=== PATIENT | male | born 1955 | race Caucasian/White ===

== ENCOUNTER → 2016-06-08 | Outpatient (CLI) | payer OTHER ==
[~2016-06-08] MED LIST: ADVIN25/60 INH; ALFU10TA30 PO; CITA20TA9 PO; CMD5 PO; ENOX100I; FLM4 PO; FLNIN/ NAE; HYDR-5688 PO; IPRA1AER2 INH; MULT-506 PO; MULTTAB58 PO; SIMV20TA2 PO; TRAM-10 PO; VITAMIN D PO; WARF2.5T8 PO; WARF5TAB7 PO
--- NOTE | 2016-06-08 14:30 | DIAGNOSTIC IMAGING REPORT ---
MRI right knee RIGHT LOWER EXT JOINT WITHOUT CLINICAL HISTORY: R KNEE PAIN Right pain TECHNIQUE: Multiaxial MRI acquisition COMPARISON STUDY: None FINDINGS: Signal characteristics of all major osseous structures are unremarkable. There is no significant bone marrow replacing process. The articular services appear intact at all major joint compartments levels. There is no significant joint effusion. There is no evidence for popliteal cyst. The menisci shows the lateral meniscus to be unremarkable. Medial meniscus shows a small linear tear inferior surface posterior horn of the meniscus. Anterior horn is unremarkable. There is no evidence for meniscal truncation. Cruciate ligaments are intact. Lateral collateral ligament is unremarkable. There is a very small partial tear of the medial collateral ligament. Infrapatellar tendon is intact. IMPRESSION: 1. Linear rather superficial tear inferior surface posterior horn medial meniscus. 2. Small partial tear medial collateral ligament. 3. Study is otherwise negative. Electronically signed by: Brannon Barillas M.D. 06/08/2016 2:28 PM Dictated Date/Time: 06/08/2016 2:24 PM
== END | disposition home or self-care (01) ==
PROVIDERS: ATTEND Orthopaedic Surgery
DX: M25.561 Pain in right knee (principal); S83.241A Other tear of medial meniscus, current injury, right knee, initial encounter; S83.411A Sprain of medial collateral ligament of right knee, initial encounter; X58.XXXA Exposure to other specified factors, initial encounter

== ENCOUNTER → 2016-07-12 | Day surgery (SDC) | payer OTHER ==
[2016-07-01 09:05] VITALS: Ht 175.3 cm; Wt 97.9 kg
--- NOTE | 2016-07-01 09:37 | PAT Medication Instructions ---
Service Date Jul 01, 2016. Current Home Medication List Citalopram Hydrobromide (Celexa), 20 MG PO QAM Fluticasone Propionate (Fluticasone Propionate), 2 SPRAYS SUSANNE HS Ipratropium-Albuterol (Combivent Respimat), 1 PUFFS INH QID PRN for PRN Multivitamin (Multivitamin), 1 TAB PO QAM Simvastatin (Zocor), 20 MG PO QAM Tamsulosin HCl (Tamsulosin HCl), 0.4-0.8 MG PO QAM Tramadol (Ultram), 1 TAB PO BID Warfarin Sod (Jantoven), 2.5 MG PO monday am Warfarin Sod (Jantoven), 5 MG PO 6XWEEK [Vitamin D], 1 TAB PO QAM Medication Instructions For Your Scheduled Surgery - Per Coumadin clinic instructions: Warfarin Sod (Martoven), 2.5 MG PO monday am Warfarin Sod (Jantoven), 5 MG PO 6XWEEK *Per pt, to bridge with Lovenox* - Hold the following medications the morning of surgery: Multivitamin (Multivitamin), 1 TAB PO QAM [Vitamin D], 1 TAB PO QAM - Take the following medications the morning of surgery with a sip of water OTHERWISE NOTHING TO EAT OR DRINK AFTER MIDNIGHT: Ipratropium-Albuterol (Combivent Respimat), 1 PUFFS INH QID PRN for PRN Tramadol (Ultram), 1 TAB PO BID (may take if needed up to 4 hours prior to surgery) Simvastatin (Zocor), 20 MG PO QAM Tamsulosin HCl (Tamsulosin HCl), 0.4-0.8 MG PO QAM - Take the following medications as scheduled the night before surgery: Fluticasone Propionate (Fluticasone Propionate), 2 SPRAYS SUSANNE HS Ipratropium-Albuterol (Combivent Respimat), 1 PUFFS INH QID PRN for PRN Tramadol (Ultram), 1 TAB PO BID If you have any questions please call us at [phone] or [phone] or [phone]
[~2016-07-12] VITALS: Ht 175.3 cm; Wt 97.9 kg
[~2016-07-12] MED LIST changes: -ADVIN25/60 INH; -ALFU10TA30 PO; +ATROPINE SULFATE 0.1 MG/ML 5ML SYR IV PRN; +BUPIVACAINE 0.5 % 5 MG/1 ML MPF 30ML VIAL ONE; +CEFAZOLIN 2000 MG/60 ML D5W IV SCH; -CMD5 PO; +DEXAMETHASONE SOD INJ 4 MG/ML VIAL ONE; +ENOXAPARIN 30 MG/0.3 ML SYR SQ ONE; +EpHEDrine SULFATE INJ 50 MG/ML AMP IV PRN; +EpINEphrine INJ 1MG/ML AMP 1 MG/ML AMP ONE; +FENTANYL CITRATE INJ 50 MCG/1 ML 2 ML VIAL IV PRN; +FENTANYL CITRATE INJ 50 MCG/1 ML 2 ML VIAL ONE; +KETOROLAC TROMETHAMINE 30 MG/ML VIAL ONE; +LACTATED RINGER'S 1000ML 1,000 ML IV SCH; +LIDOCAINE HCL 1% 20 ML VIAL ONE; +LIDOCAINE HCL 2% 2 ML VIAL (20MG/ML) ONE; +MIDAZOLAM HCL 1 MG/ML 2ML VIAL ONE; -MULTTAB58 PO; +ONDANSETRON INJ 2 MG/ML 2 ML VIAL IV PRN; +ONDANSETRON INJ 2 MG/ML 2 ML VIAL ONE; +OXYCODONE/ACETAMINOPHEN 5-325 TAB PO PRN; +PROPOFOL IV EMULSION 10 MG/ML 20 ML VIAL IV ONE; +ROPIVACAINE 0.5% 5 MG/ML 30 ML VIAL ONE; +SODIUM CHLORIDE 0.9% 1000ML 1,000 ML IV SCH
--- NOTE | 2016-07-12 09:57 | [facility] Post Operative Brief Note ---
Immediate Operative Summary Operative Date Jul 12, 2016. Pre-Operative Diagnosis Tear of Right Medial Meniscus, Knee, Left Long Finger Trigger Release Post-Operative Diagnosis Same Procedure(s) Performed Right Knee Arthroscopy, Partial Medial Meniscectomy,Removal of Plica Band Trigger Finger Release, Left Long Finger Surgeon Dr. Matthew Johnson Replenishment Associate Surgeon(s) Uma Gandara PA-C Estimated Blood Loss 0 Findings ABOVE Specimens None Anesthesia LMA Complication(s) None Disposition Recovery Room / PACU
--- NOTE | 2016-07-12 09:57 | History & Physical Bridge - SC ---
H&P Re-Evaluation Bridge Note: I have examined the patient, reviewed the History & Physical and in the interval since the performance of the History & Physical I have noted the following changes of clinical significance: No changes noted
--- NOTE | 2016-07-12 10:06 | Discharge Instructions-SurgCtr ---
Discharge Instructions Date of Service Jul 12, 2016. Visit Reason for Visit: Tear Of Right Medial Meniscus Of Knee, Left Long T Discharge Discharge Diagnosis / Problem: SAME ABOVE Discharge Goals Goal(s): Decrease discomfort, Improve function Medications Stopped Medications Name(s): Coumadin stopped July 06 started Lovenox injections Activity Recommendations Activity Limitations: as noted below Lifting Limitations: gradually increase as tolerated Exercise/Sports Limitations: until after follow-up appointment Driving or Machine Use: resume 3 days after discharge Weightbearing Status: Right weightbearing (as tolerated) Anesthesia . Post Anesthesia Instructions: If you have had General Anesthesia or IV Sedation: * Do not drive today. * Resume driving when surgeon permits. * Do not make important decisions or sign legal documents today. * Call surgeon for: 1. Temperature elevations greater than 101 degrees F. 2. Uncontrollable pain. 3. Excessive bleeding. 4. Persistent nausea and vomiting. 5. Medication intolerance (nausea, vomiting or rash). * For nausea and vomiting use only clear liquids such as: tea, soda, bouillon until nausea subsides, then gradually increase diet as tolerated. * If you have any concerns or questions, call your surgeon's office. If physician is unavailable and it is an emergency, call 911 or go to the nearest emergency room. . Instructions / Follow-Up Instructions / Follow-Up MEDICATIONS: * Resume previous medications unless instructed otherwise by your surgeon. * Always take pain medication on a full stomach or with food to avoid upset stomach. * Do not drink alcohol or drive while taking narcotics. * Ibuprofen or Tylenol may be taken if narcotic not needed. SPECIAL CARE INSTRUCTIONS: __ None _X_ Keep extremity elevated and iced x 48 hours; apply ice 20-30 minutes 8-10 times/day. May remove at night. __ Crutches __ May discard when able __ Brace/Post-op shoe __ 24 hrs/day __ Remove at night _X_ Dressing __ Maintain until seen in office, may shower with plastic over site _X_ Remove dressings in 24-48 hours and then may shower _X_ Cover incisions with band-aids after showering __ Do not remove steri-strips START COUMADIN THERAPY DIRECTED BY THE COUMADIN CLINIC POST OP Call physician if chills or temperature rises above 102 degrees or pain unrelieved by prescribed pain medications. Office [phone] Diet Recommendations Home Diet: resume previous diet Procedures Procedures Performed: Right Knee Arthroscopy, Partial Medial Meniscectomy,Removal of Plica Band Trigger Finger Release, Left Long Finger Pending Studies Studies pending at discharge: no Medical Emergencies . Who to Call and When: Medical Emergencies: If at any time you feel your situation is an emergency, please call 911 immediately. . Non-Emergent Contact Non-Emergency issues call your: Primary Care Provider . . "Provider Documentation" section prepared by Bradley Gandara.
--- NOTE | 2016-07-12 10:36 | OPERATIVE REPORT ---
DATE OF OPERATION: 07/12/2016 PREOPERATIVE DIAGNOSES: 1. Medial meniscus tear, right knee. 2. Left long trigger finger. POSTOPERATIVE DIAGNOSES: Same. PROCEDURE: 1. Right knee arthroscopy and partial medial meniscectomy. 2. Release A1 joel, left long finger. SURGEON: Dr. Johnson. TECHNICAL SERVICES ASSISTANT: Bradley Gandara PA-C. ANESTHESIOLOGIST: Devan. ANESTHESIA: LMA. DRAINS: None. COMPLICATION: None. CONDITION: The patient tolerated the procedure well and returned to the recovery room in apparent satisfactory condition. INDICATIONS FOR SURGERY: Abram is a 60-year-old male who has had right knee problem for quite some time and is indicative of meniscus tear and he also has developed a left long trigger finger, elected go ahead and take care of both at the same time. Procedure, expected outcomes and side effects were all explained in detail. He has factor V disorder. He was seen at the [facility] and they have got him on bridge the Lovenox and Coumadin protocol pre and postop. The risk of blood clot was discussed at length with him with the knee arthroscopy and he understood that associated risk. PROCEDURE IN DETAIL: The patient was taken to the OR at which time he was placed supine on the operating table and put to sleep by anesthesia department. We prepped and draped both the left hand and the right knee out for surgery. Began arthroscopic examination of the right knee after tourniquet was placed up to 300 mmHg. Arthroscopically, we came in and found a flap tear of the posterior horn of the medial meniscus. It was folded up on itself. We reduced it back into the joint and shaved it and trimmed it out with upbiting scissors. The articular surface looked good. ACL, lateral compartment finds a large plica band in the medial superior plica area, this was shaved out without incident. Knee then was copiously irrigated. All cannulas were removed. Portals were closed with 4-0 nylon sutures. Ropivacaine 30 mL, 10 mg of Toradol, and 1 mL of epinephrine was placed in the knee joint. Placed a sterile dressing of Xeroform, 4 x 4's, ABD, Sof-Rol, and Rubén bandage, and tourniquet was let down. Attention was given to the hand. We went ahead and exsanguinated the hand with the forearm tourniquet up to 200 of mmHg. We then outlined a transverse incision over the A1 joel. We used an 11 blade and dissected down and divided the A1 joel with a 15 blade. We began incision with a 15 blade, dissected down, exposed the A1 joel, then incised it with an 11 blade and tenotomy scissors. Wound was irrigated, closed with interrupted 4-0 nylon sutures. Marcaine without epinephrine was placed in the skin edges. Placed a sterile dressing of Xeroform, 4 x 4's, Coban, and returned to recovery room in apparent satisfactory condition. I attest to the content of the Intraoperative Record and any orders documented therein. Any exceptio ns are noted below.
--- NOTE | 2016-07-12 10:58 | Anesthesia Progress Nt - [facility] ---
Anesthesia Post Op Note Date & Time Jul 12, 2016 at 10:57 Vital Signs Pain Intensity: 0 Vital Signs Past 12 Hours Date Time Temp Pulse Resp B/P Pulse Ox O2 Delivery O2 Flow Rate FiO2 07/12/16 10:45 62 15 130/90 95 07/12/16 10:45 62 15 07/12/16 10:40 61 17 07/12/16 10:40 61 17 133/89 96 07/12/16 10:35 36.4 61 12 130/90 95 Room Air 07/12/16 10:35 62 14 116/83 97 07/12/16 10:35 63 14 07/12/16 10:30 64 15 131/87 07/12/16 10:30 63 15 07/12/16 10:25 68 14 07/12/16 10:25 69 14 123/88 97 07/12/16 10:20 64 13 134/86 100 07/12/16 10:20 64 13 07/12/16 10:15 65 13 07/12/16 10:15 65 13 129/76 07/12/16 10:10 69 17 07/12/16 10:10 70 17 136/84 99 07/12/16 10:05 70 13 07/12/16 10:05 70 13 116/83 94 07/12/16 10:01 117/77 07/12/16 10:00 36.1 68 16 117/71 96 Mask 6 07/12/16 08:01 36.8 69 16 128/86 96 Room Air Notes Mental Status: alert / awake / arousable, participated in evaluation Pt Amnestic to Procedure: Yes Nausea / Vomiting: adequately controlled Pain: adequately controlled Airway Patency, RR, SpO2: stable & adequate BP & HR: stable & adequate Hydration State: stable & adequate Anesthetic Complications: no major complications apparent
[2016-07-12 11:02] VITALS: TEMP 36.5
[2016-07-12 11:25] VITALS: BP 133/83; PULSE 60; O2SAT 100
== END | disposition home or self-care (01) ==
LOC: X.SURG 07:46
PROVIDERS: ATTEND Orthopaedic Surgery
DX: M23.321 Other meniscus derangements, posterior horn of medial meniscus, right knee (principal); M65.322 Trigger finger, left index finger; E78.00 Pure hypercholesterolemia, unspecified; D68.51 Activated protein C resistance; Z79.01 Long term (current) use of anticoagulants; Z86.711 Personal history of pulmonary embolism

== ENCOUNTER → 2016-07-18 | Outpatient (CLI) | payer OTHER ==
[~2016-07-18] MED LIST changes: -ATROPINE SULFATE 0.1 MG/ML 5ML SYR IV PRN; -BUPIVACAINE 0.5 % 5 MG/1 ML MPF 30ML VIAL ONE; -CEFAZOLIN 2000 MG/60 ML D5W IV SCH; -DEXAMETHASONE SOD INJ 4 MG/ML VIAL ONE; -ENOXAPARIN 30 MG/0.3 ML SYR SQ ONE; -EpHEDrine SULFATE INJ 50 MG/ML AMP IV PRN; -EpINEphrine INJ 1MG/ML AMP 1 MG/ML AMP ONE; -FENTANYL CITRATE INJ 50 MCG/1 ML 2 ML VIAL IV PRN; -FENTANYL CITRATE INJ 50 MCG/1 ML 2 ML VIAL ONE; -KETOROLAC TROMETHAMINE 30 MG/ML VIAL ONE; -LACTATED RINGER'S 1000ML 1,000 ML IV SCH; -LIDOCAINE HCL 1% 20 ML VIAL ONE; -LIDOCAINE HCL 2% 2 ML VIAL (20MG/ML) ONE; -MIDAZOLAM HCL 1 MG/ML 2ML VIAL ONE; -ONDANSETRON INJ 2 MG/ML 2 ML VIAL IV PRN; -ONDANSETRON INJ 2 MG/ML 2 ML VIAL ONE; -OXYCODONE/ACETAMINOPHEN 5-325 TAB PO PRN; -PROPOFOL IV EMULSION 10 MG/ML 20 ML VIAL IV ONE; -ROPIVACAINE 0.5% 5 MG/ML 30 ML VIAL ONE; -SODIUM CHLORIDE 0.9% 1000ML 1,000 ML IV SCH; -TRAM-10 PO
--- NOTE | 2016-07-18 11:18 | DIAGNOSTIC IMAGING REPORT ---
ULTRASOUND RIGHT VENOUS DOPP LOWER EXT UNILAT CLINICAL HISTORY: Right leg pain and swelling COMPARISON STUDY: No previous studies for comparison. FINDINGS: Real-time and color flow Doppler imaging were performed. Flow was seen within the femoral, popliteal and calf veins with no intraluminal thrombus demonstrated. The saphenous vein is patent. IMPRESSION: No evidence of right lower extremity DVT. Electronically signed by: Manohar Major M.D. 07/18/2016 11:16 AM Dictated Date/Time: 07/18/2016 11:16 AM
== END | disposition home or self-care (01) ==
LOC: C.ULTRBC 10:40
PROVIDERS: ATTEND Orthopaedic Surgery
DX: M79.604 Pain in right leg (principal); M79.89 Other specified soft tissue disorders; Z96.651 Presence of right artificial knee joint

== ENCOUNTER → 2016-12-12 | Outpatient (CLI) | payer OTHER | END | disposition home or self-care (01) | LOC: C.LABPVFM 15:08 | PROVIDERS: ATTEND Family Medicine | DX: J02.9 Acute pharyngitis, unspecified (principal) ==

== ENCOUNTER → 2017-06-26 | Outpatient (CLI) | payer OTHER ==
[~2017-06-26] MED LIST changes: -HYDR-5688 PO
--- NOTE | 2017-06-26 10:47 | DIAGNOSTIC IMAGING REPORT ---
CHEST 2 VIEWS ROUTINE CLINICAL HISTORY: 61 years-old Male presenting with Acute bronchitis Acute bronchitis. TECHNIQUE: PA and lateral views of the chest were obtained. COMPARISON: 06/01/2014. FINDINGS: Cardiomediastinal silhouette normal. No focal opacity. No large effusion or pneumothorax. Osseous structures normal. Upper abdomen normal. IMPRESSION: 1. No acute cardiopulmonary disease. Electronically signed by: Rene Jones M.D. 06/26/2017 10:46 AM Dictated Date/Time: 06/26/2017 10:45 AM
== END | disposition home or self-care (01) ==
LOC: C.LABPVFM 10:23
PROVIDERS: ATTEND Family Medicine
DX: J20.9 Acute bronchitis, unspecified (principal)